=== PATIENT | female | born 1985 | race Caucasian/White ===

== ENCOUNTER 2022-04-23 12:34 | Outpatient (CLI) | payer OTHER | END 2022-04-23 12:39 | disposition home or self-care (01) | LOC: SONOGRAMA 12:34 | PROVIDERS: ATTEND Obstetrics & Gynecology | DX: N83.01 Follicular cyst of right ovary (principal); N83.02 Follicular cyst of left ovary ==

== ENCOUNTER 2022-04-30 07:06 | Day surgery (SDC) | payer OTHER | END 2022-04-30 14:00 | disposition home or self-care (01) | LOC: CIR.AMB 07:06 | PROVIDERS: ATTEND Obstetrics & Gynecology | DX: Z30.2 Encounter for sterilization (principal); R10.2 Pelvic and perineal pain; Z30.432 Encounter for removal of intrauterine contraceptive device; Z20.822 Contact with and (suspected) exposure to COVID-19; Z86.16 Personal history of COVID-19 ==